=== PATIENT | female | born 1995 | race Caucasian/White ===

== ENCOUNTER 2019-07-21 13:48 | Emergency (ER) | payer MEDICAID ==
[~2019-07-21] VITALS: Ht 157.5 cm; Wt 74.4 kg
[2019-07-21 14:16] VITALS: BP 124/73
--- NOTE | 2019-07-21 14:32 | NUR ---
ABDOMINAL PAIN, AND MULTIPLES EPISODES OF VOMITING AND NONBLOODY DIARRHEA SINCE THIS AM. PT STATES "I THINK I SAW STREAKS OF RED IN MY VOMIT". DENIES RED FLUIDS/FOODS. DENIES FEVER/CHILLS. HAD 2 BEERS LAST NIGHT TOOK PEPTO BISMUTH PRIOR TO COMING TO ER PAIN WORSE AT EPIGASTRIUM AND RADIATING TO BOTH SIDES. BURNING SENSATION. PMH: NONE MEDS: NONE NKA
[2019-07-21] MEDS ORDERED: DICYCLOMINE 20 MG/2 ML VIAL IM ONE (14:45)
[2019-07-21] MEDS ORDERED: ONDANSETRON 4 MG/2 ML VIAL IVP ONE (14:45)
[2019-07-21] MEDS ORDERED: NACL 0.9% 1,000 ML IV ONE (14:45)
[2019-07-21 15:32] LABS: BASOPHILS # (AUTO) 0.1 K/uL (0.00-0.22); BASOPHILS % (AUTO) 0.6 % (0.0-2.0); HEMATOCRIT 41.5 % (36-48); HEMOGLOBIN 14.2 g/dL (12.0-16.0); LYMPHOCYTES # (AUTO) 1.2 K/uL (2.5-16.5); LYMPHOCYTES % (AUTO) 8.8 % (20.5-51.1); MEAN CORPUSCULAR HEMOGLOBIN 29 pg (27-31); MEAN CORPUSCULAR HGB CONC 34 g/dL (33-37); MEAN CORPUSCULAR VOLUME 85.2 fL (80-94); MONOCYTES # (AUTO) 0.3 K/uL (0.8-1.0); MONOCYTES % (AUTO) 2.4 % (1.7-9.3); NEUTROPHILS # (AUTO) 12.3 K/uL (1.8-7.7); NEUTROPHILS % (AUTO) 88.2 % (42.2-75.2); PLATELET COUNT (AUTO) 350 K/uL (140-450); RED BLOOD CELL COUNT(AUTO) 4.87 MIL/uL (4.20-5.40); RED CELL DISTRIBUTION WIDTH 13.9 % (11.6-13.7)
[2019-07-21 15:56] LABS: ALBUMIN 4.6 g/dL (3.4-5.0); ANION GAP 18.9 (8-16); CARBON DIOXIDE 24.7 mmol/L (21-32); CREATININE 0.9 mg/dL (0.6-1.3); POTASSIUM 3.6 mmol/L (3.5-5.1); TOTAL BILIRUBIN 0.4 mg/dL (0.0-1.0)
[2019-07-21 16:36] VITALS: BP 137/76
--- NOTE | 2019-07-21 16:36 | NUR ---
Patient discharged with v/s stable. Written and verbal after care instructions given and explained. Patient alert, oriented and verbalized understanding of instructions. Ambulatory with steady gait. All questions addressed prior to discharge. ID band removed. Patient advised to follow up with PMD. Rx of ZOFRAN AND RANITIDINE given. Patient educated on indication of medication including possible reaction and side effects. Opportunity to ask questions provided and answered.
== END 2019-07-21 16:36 | disposition home or self-care (01) ==
LOC: MED 13:48
DX: K29.20 Alcoholic gastritis without bleeding (principal)
CPT/HCPCS: 36415; 80053; 81002; 81025; 83690; 85025; 96374; 96375; 99284; G0482; J0500; J2405; J7030

== ENCOUNTER 2021-01-06 18:15 | Emergency (ER) | payer MEDICAID ==
[~2021-01-06] VITALS: Ht 157.5 cm; Wt 72.6 kg
[2021-01-06 18:32] VITALS: BP 123/67
[2021-01-06] MEDS ORDERED: NACL 0.9% 1,000 ML IV ONE (18:50)
[2021-01-06] MEDS ORDERED: ONDANSETRON 4 MG/2 ML VIAL IVP ONE ×2 (18:50→20:40)
--- NOTE | 2021-01-06 19:03 | NUR ---
SWAB FOR HUGO SENT TO LAB
--- NOTE | 2021-01-06 19:10 | NUR ---
ambulated to bed 1
[2021-01-06 19:12] LABS: BASOPHILS % (AUTO) 0.3 % (0.0-2.0); HEMATOCRIT 40.7 % (36-48); HEMOGLOBIN 13.6 g/dL (12.0-16.0); LYMPHOCYTES # (AUTO) 1.4 K/uL (2.5-16.5); LYMPHOCYTES % (AUTO) 9.9 % (20.5-51.1); MEAN CORPUSCULAR HEMOGLOBIN 30 pg (27-31); MEAN CORPUSCULAR HGB CONC 33 g/dL (33-37); MEAN CORPUSCULAR VOLUME 89.8 fL (80-94); MONOCYTES # (AUTO) 0.4 K/uL (0.8-1.0); MONOCYTES % (AUTO) 2.6 % (1.7-9.3); NEUTROPHILS # (AUTO) 12.6 K/uL (1.8-7.7); NEUTROPHILS % (AUTO) 87.2 % (42.2-75.2); PLATELET COUNT (AUTO) 301 K/uL (140-450); RED BLOOD CELL COUNT(AUTO) 4.54 MIL/uL (4.20-5.40); RED CELL DISTRIBUTION WIDTH 13.5 % (11.6-13.7); WHITE BLOOD COUNT (AUTO) 14.4 K/uL (4.8-10.8)
[2021-01-06 19:29] LABS: ALBUMIN 4.4 g/dL (3.4-5.0); ANION GAP 15.1 (8-16); ASPARTATE AMINOTRANSFERASE 23 U/L (15-37); CARBON DIOXIDE 25.5 mmol/L (21-32); CHLORIDE 106 mmol/L (98-107); CREATININE 0.9 mg/dL (0.6-1.3); GFR ARICAN-AMERICAN 99 mL/min (>90); GLUCOSE 137 mg/dL (74-106); POTASSIUM 3.6 mmol/L (3.5-5.1); SODIUM SERUM 143 mmol/L (136-145); TOTAL BILIRUBIN 0.5 mg/dL (0.0-1.0); UREA NITROGEN, BLOOD 12 mg/dL (7-18)
--- NOTE | 2021-01-06 19:30 | NUR ---
RECEIVED REPORT FROM DAY NURSE; PT AAOX4, N/V X2 DRY HEAVING. NEW PIV STARTED 20 G TO L HAND, PATENT. IVF BOLUS STARTED PER ERMD ORDERS. VSS. WILL CONTINUE TO OBSERVE
--- NOTE | 2021-01-06 19:35 | NUR ---
25 YO F BIB SELF FOR C/O N/V. X 4 EPISODES PER PT. PT AAOX4, DRY HEAVING @ BEDSIDE. DENIES CP/SOB. ACTIVE BOWEL SOUNDS. TENDERNESS TO LOWER ABD TO TOUCH. JOHN PAULRNEY LOCKED IN LOWEST POSITION. WILL UPDATE ERMD LMP: 12/25/20 NKA HX: DENIES
[2021-01-06] MEDS ORDERED: ONDA4TAB PO (19:46)
--- NOTE | 2021-01-06 20:35 | NUR ---
PT C/O N/V ERMD MADE AWARE X1 EPISODE OF EMESIS, APPROX 100 ML GREEN FLUID NOTED. NEW ORDERS FOR ZOFRAN SEE EMAR FOR DETAILS.
[2021-01-06 21:20] VITALS: BP 147/80
--- NOTE | 2021-01-13 02:26 | NUR ---
LATE ENTRY- 0.9% NS IVF DISCONTINUED AT 2044
== END 2021-01-06 21:20 | disposition home or self-care (01) ==
LOC: MED 18:15
DX: A08.4 Viral intestinal infection, unspecified (principal); F12.10 Cannabis abuse, uncomplicated; Z20.822 Contact with and (suspected) exposure to COVID-19
CPT/HCPCS: 36415; 80053; 81002; 81025; 85025; 87426; 96361; 96374; 96376; 99284; G0482; J2405

== ENCOUNTER 2021-03-13 23:22 | Emergency (ER) | payer MEDICAID, SELFPAY ==
[~2021-03-13] VITALS: Ht 160 cm; Wt 74.8 kg
[~2021-03-13 23:22] MED LIST: ONDA4TAB PO
[2021-03-13 23:41] VITALS: BP 111/77
--- NOTE | 2021-03-13 23:44 | NUR ---
TO LOBBY A/W BED AMBULATORY
--- NOTE | 2021-03-14 00:30 | NUR ---
SEEN AND EXAMINED BY JOSE
[2021-03-14] MEDS ORDERED: KETOROLAC 30 MG/ML VIAL IM ONE (00:40)
--- NOTE | 2021-03-14 01:00 | NUR ---
MEDICATED PER ERMDS ORDER.TOLERATED WELL
--- NOTE | 2021-03-14 01:13 | NUR ---
PT TAKEN TO BED 10.
[2021-03-14] MEDS ORDERED: LIDOCAINE 2% 1000 MG/50 ML VIAL INJ ONE (01:45)
[2021-03-14] MEDS ORDERED: CHLO473S62 PO (02:30)
[2021-03-14] MEDS ORDERED: IBUP-2213 PO (02:30)
[2021-03-14] MEDS ORDERED: DEXA6TAB8 PO (02:30)
[2021-03-14] MEDS ORDERED: AMOX-1000 PO (02:30)
[2021-03-14] MEDS ORDERED: AMPICILLIN/SULBACTAM 1.5 GM in NACL 0.9% 50 ML IV ONE (02:30)
[2021-03-14] MEDS ORDERED: AMPICILLIN/SULBACTAM 1.5 GM VIAL ONE (02:52)
[2021-03-14 03:48] VITALS: BP 137/76
--- NOTE | 2021-03-14 03:48 | NUR ---
Patient discharged with v/s stable. Written and verbal after care instructions given and explained. Patient alert, oriented and verbalized understanding of instructions. Ambulatory with steady gait. All questions addressed prior to discharge. ID band removed. Patient advised to follow up with PMD. Rx of augmentin, peridex, decadron, and ibuprofen given. Patient educated on indication of medication including possible reaction and side effects. Opportunity to ask questions provided and answered.
== END 2021-03-14 03:48 | disposition home or self-care (01) ==
LOC: MED 23:22
DX: J36 Peritonsillar abscess (principal); Z79.899 Other long term (current) drug therapy
CPT/HCPCS: 42700; 81025; 96365; 96372; 99284; J0295; J1885; J2001